=== PATIENT | female | born 1985 | race American Indian/Alaskan Native ===

== ENCOUNTER 2019-03-15 17:20 | Emergency (ER) | payer SELFPAY ==
[2019-03-15 17:29] VITALS: BP 134/83
--- NOTE | 2019-03-15 17:35 | Event Note ---
ED Screening Note Date of service: 03/15/19 Time: 17:32 ED Screening Note: 33 y o transgender female presents to ED cc of low pelvic pain worsening x 2 weeks states taking hormones moved from [place] This initial assessment/diagnostic orders/clinical plan/treatment(s) is/are subject to change based on patients health status, clinical progression and re- assessment by fellow clinical providers in the ED. Further treatment and workup at subsequent clinical providers discretion. Patient/guardian urged not to elope from the ED as their condition may be serious if not clinically assessed and managed. Initial orders include: ua,
[2019-03-15 22:47] LABS: Bilirubin,Urine NEG (Negative); Blood,Urine NEG (Negative); Color,Urine Yellow (Yellow); Mucus,Urine FEW /HPF; Protein,Urine <15 mg/dL mg/dL (Negative); Urobilinogen,Urine < 2.0 mg/dL (<2.0)
== END 2019-03-15 23:34 | disposition left against medical advice (07) ==
LOC: ED 17:20
DX: R10.9 Unspecified abdominal pain (principal); Z53.21 Procedure and treatment not carried out due to patient leaving prior to being seen by health care provider
CPT/HCPCS: 81001